=== PATIENT | male | born 1965 | race Caucasian/White ===

== ENCOUNTER 2016-12-13 20:24 | Emergency (ER) | payer OTHER ==
--- NOTE | 2016-12-13 22:05 | DIAGNOSTIC IMAGING REPORT ---
PROCEDURE: CT HEAD WITHOUT CONTRAST INDICATION: HEADACHE TECHNIQUE: Axial CT images were acquired through the head. Coronal and sagittal reformations were created. COMPARISON: 11/16/2015 and 05/13/2016 FINDINGS: There is a peripherally hyperdense, irregular mass in the right posterior parieto-occipital region. It measures approximately 4.7 x 4.1 x 3.8 cm. There is extensive vasogenic edema involving the right posterior hemisphere resulting in 13 mm of right to left midline shift (subfalcine herniation), and compression of the right lateral ventricle with obliteration of the posterior horn. Mild dilatation of the left lateral ventricle. Edema extends caudal to affect the temporal lobe and causes descending transtentorial herniation on the right and effacement of suprasellar and ambient cisterns. There is descent of the mid brain. There is transtentorial herniation of the posterior aspect of the temporal lobe into the posterior fossa, seen best on coronal images. Slight right cerebellar tonsillar herniation into the foramen magnum. No drainable extra-axial fluid collection. Extracranial soft tissues including orbits are normal. Osseous structures are intact. Sinuses are normally aerated. IMPRESSION: 1. Right parieto-occipital peripherally hyperdense mass causing extensive vasogenic edema in the right posterior hemisphere. This results in significant mass effect and potentially lethal herniation as described. 2. Findings discussed with Dr. Lang at [address] scans at this facility use dose modulation, iterative reconstruction, and/or weight-based dosing when appropriate to reduce radiation dose to as low as reasonably achievable.
--- NOTE | 2016-12-13 22:12 | DIAGNOSTIC IMAGING REPORT ---
PROCEDURE: XR CHEST 2 VIEW INDICATION: COUGH TECHNIQUE: Two views. COMPARISON: 05/13/2016 FINDINGS: The cardiomediastinal contour is stable. No central venous congestion. Mildly hyperinflated lungs. 2.4 cm lobulated mass in the right lower lobe. An adjacent 8 mm nodule. Both have slightly increased compared to the prior study. No other masses. No infiltrates or effusions. Intact osseous structures. IMPRESSION: 1. Two right lower lung nodules, both mildly increased in size since the prior study. 2. Mildly hyperinflated lungs
--- NOTE | 2016-12-13 22:58 | ED ORDER SUMMARY ---
..... Patient: GUSTAVO GONZALEZ OrderSheet [facility] VisitID: [id number] [place] [address] 51y, M Registration Date/Time: 12/13/2016 ORDER SHEET Weight: 74.8 kg (stated) Allergies: No Known Drug Allergy GENERAL ORDERS: CBC w Diff Urgent (20:39 12/13/2016 [facility] DO) (Ack 20:41 [employer] [facility] Pump Installer) (20:42 MWinterer R.N.) CMP Urgent (20:39 12/13/2016 [facility] DO) (Ack 20:41 [employer] [facility] Pump Installer) (20:42 MWinterer R.N.) Chest 2V (reported history of lung cancer) Urgent (20:53 12/13/2016 [facility] DO) (Ack 20:55 [employer] [facility] Pump Installer) (21:10 MWinterer R.N.) CT Head wo Cont (reported history of "brain cancer") Urgent (20:54 12/13/2016 [facility] DO) (Ack 20:55 [employer] [facility] Pump Installer) (21:10 MWinterer R.N.) - (mannitol (20%) Loading dose 0.5 g/kg bolus) (22:13 12/13/2016 Lavonne Trevino) (Ack 22:17 MWinterer R.N.) (22:53 MWinterer R.N.) - (serum osmolality) (22:15 12/13/2016 Lavonne Trevino) (Cancelled: Other22:26 [employer] [facility] Pump Installer) PT with INR Urgent (22:16 12/13/2016 Lavonne Trevino) (22:29 [employer] [facility] Pump Installer) PTT Urgent (22:16 12/13/2016 Lavonne Trevino) (22:29 [employer] ER Pump Installer) MEDICATION ORDERS: IV FLUIDS: IV NS : initial bolus 1000 mL (1000 mL/hr), then 1000 mL/hr for X2 (NOW) (20:39 12/13/2016 [facility] DO) (Ack 20:42 MWinterer R.N.) (21:05 MWinterer R.N.) Dilaudid IV 0.5 mg (HIGH ALERT MEDICATION, NOW) (20:53 12/13/2016 [facility]) (Ack 21:04 MWinterer R.N.) (21:36 MWinterer R.N.) Zofran IV 4 mg (NOW) (20:53 12/13/2016 [facility]) (Ack 21:04 MWinterer R.N.) (21:36 MWinterer R.N.) Decadron IV 10 mg (NOW) (22:16 12/13/2016 Lavonne Trevino) (Ack 22:17 MWinterer R.N.) (22:39 MWinterer R.N.) Mannitol IV 0.5 gm/kg (NOW) (22:59 12/13/2016 MWinterer R.N. written order Lavonne Trevino) (23:00 MWinterer R.N.) ORDER SHEET NOTES: [Electronically signed by Karley Padilla (01:35 12/14/2016)] [Electronically signed by Jose Lang Dr. (10:09 12/14/2016)] [Electronically locked/signed by Karley Padilla (01:35 12/14/2016)]
--- NOTE | 2016-12-13 22:58 | ED CLINICAL REPORT ---
Clinical Report - Physicians/Mid Levels [address] [place] [address] 12/13/2016 20:24 Patient: GUSTAVO GONZALEZ Time Seen: 20:38. Arrived- By private vehicle. Historian- patient. HISTORY OF PRESENT ILLNESS Is still present and worsening. Chief Complaint: HEADACHE. This started about 1 month ago. It was gradual in onset and has been waxing/waning but is not gone now. Onset during rest. It is described as "pain". No neck pain. Not located in the facial region. At its maximum, severity described as severe. When seen in the E.D., severity described as severe. Modifying factors: worsened by moving head; relieved by rest. The patient has had nausea and vomiting. No weakness. Similar symptoms previously: None. Recent medical care: Not recently seen/assessed. REVIEW OF SYSTEMS No fever, chest pain or difficulty breathing. All systems otherwise negative, except as recorded above. PAST HISTORY See nurses notes. PROBLEMS: Malignant neoplasm of brain. Lung Cancer. Head Injury. SOCIAL HISTORY Smoker- current status unknown. History of drug use meth > 20 y ago: marijuana. No alcohol use. No recent travel. Is a local resident. ADDITIONAL NOTES The nursing notes have been reviewed. PHYSICAL EXAM Vital Signs: 12/13/2016 20:31 BP: 146/78. HR: 69. RR: 12. O2 saturation: 99%. Temp: 97.9 F. Pain level now: 8/10. Blood pressure normal. Oxygen saturation normal. Appearance: Alert. Patient in mild distress. (non-toxic. pleasant. cooperative. polite.). Eyes: Pupils equal, round and reactive to light. Eyes normal inspection. ENT: Ears normal. Nose normal. Pharynx normal. Neck: Normal inspection. Neck supple. No meningeal signs. CVS: Normal heart rate and rhythm. Heart sounds normal. Pulses normal. Respiratory: No respiratory distress. Breath sounds normal. Abdomen: Soft and nontender. No organomegaly. Skin: Skin warm and dry. Normal skin color. No rash. Normal skin turgor. Extremities: Extremities exhibit normal ROM. No lower extremity edema. Neuro: Oriented X 3. Alert. Mood/affect normal. Speech normal. Cranial nerves normal (as tested). No cerebellar findings. No motor deficit. No sensory deficit. LABS, X-RAYS, AND EKG Chest X-ray: (PROCEDURE: XR CHEST 2 VIEW INDICATION: COUGH TECHNIQUE: Two views. COMPARISON: 05/13/2016 FINDINGS: The cardiomediastinal contour is stable. No central venous congestion. Mildly hyperinflated lungs. 2.4 cm lobulated mass in the right lower lobe. An adjacent 8 mm nodule. Both have slightly increased compared to the prior study. No other masses. No infiltrates or effusions. Intact osseous structures. IMPRESSION: 1. Two right lower lung nodules, both mildly increased in size since the prior study. 2. Mildly hyperinflated lungs). CT Head: (PROCEDURE: CT HEAD WITHOUT CONTRAST INDICATION: HEADACHE TECHNIQUE: Axial CT images were acquired through the head. Coronal and sagittal reformations were created. COMPARISON: 11/16/2015 and 05/13/2016 FINDINGS: There is a peripherally hyperdense, irregular mass in the right posterior parieto-occipital region. It measures approximately 4.7 x 4.1 x 3.8 cm. There is extensive vasogenic edema involving the right posterior hemisphere resulting in 13 mm of right to left midline shift (subfalcine herniation), and compression of the right lateral ventricle with obliteration of the posterior horn. Mild dilatation of the left lateral ventricle. Edema extends caudal to affect the temporal lobe and causes descending transtentorial herniation on the right and effacement of suprasellar and ambient cisterns. There is descent of the mid brain. There is transtentorial herniation of the posterior aspect of the temporal lobe into the posterior fossa, seen best on coronal images. Slight right cerebellar tonsillar herniation into the foramen magnum. No drainable extra-axial fluid collection. Extracranial soft tissues including orbits are normal. Osseous structures are intact. Sinuses are normally aerated. IMPRESSION: 1. Right parieto-occipital peripherally hyperdense mass causing extensive vasogenic edema in the right posterior hemisphere. This results in significant mass effect and potentially lethal herniation as described.). The study was independently viewed by me and interpreted by the radiologist. The study was discussed with the radiologist (via phone and pacs). Laboratory Tests: CBC w Diff: (ASIA: 12/13/2016 20:40) ( MsgRcvd 12/13/2016 20:53) Final results Test Result Flag Units (Reference) WHITE BLOOD COUNT 12.2 H K/uL (4.5-11.5) RED BLOOD COUNT 4.97 M/uL (4.50-5.90) HEMOGLOBIN 15.3 gm/dL (13.5-17.5) HEMATOCRIT 45.2 % (41.0-53.0) MEAN CELL VOLUME 91 fL (80-100) MEAN CORPUSCULAR HGB 31 pg (26-34) MEAN CORPUSCULAR HGB CONC 34 g/dL (31-37) RED CELL DISTRIBUTION WIDTH 14.2 % (11.6-14.8) PLATELET COUNT 400 K/uL (150-400) NEUTROPHIL % 84.3 H % (50-75) LYMPH % 9.3 L % (25-40) MONO % 5.5 % (3-14) EOSINOPHIL % 0.6 % (0-4) BASOPHIL % 0.3 % (0-2) CMP: (ASIA: 12/13/2016 20:40) ( MsgRcvd 12/13/2016 21:13) Final results Test Result Flag Units (Reference) GLUCOSE 96 mg/dL (70-110) BUN 9 mg/dL (7-18) CREATININE 0.7 mg/dL (0.6-1.3) Estimated GFR >60 mL/min Estimated GFR- >60 mL/min Note: Persistent reduction over 3 months in eGFR<60 mL/min/1.73 m2 defines CKD. Patients with eGFR values>=60 mL/min/1.73 m2 may also have CKD if evidence ofpersistent proteinuria. Additional information may be foundat [email or web address].org. SODIUM 140 mmol/L (136-145) POTASSIUM 4.0 mmol/L (3.5-5.1) CHLORIDE 102 mmol/L (98-107) CARBON DIOXIDE 22 mmol/L (21-32) CALCIUM 9.5 mg/dL (8.5-10.1) TOTAL PROTEIN 7.9 g/dL (6.4-8.2) ALBUMIN 4.3 g/dL (3.3-5.0) BILIRUBIN, TOTAL 0.6 mg/dL (0.0-1.0) ALKALINE PHOSPHATASE 60 U/L (46-116) AST (SGOT) 19 U/L (15-37) ALT (SGPT) 18 U/L (12-78) . PROGRESS AND PROCEDURES Course of Care: the patient is a 51-year-old male presenting for evaluation of headache. The patient has a complex past medical history including lung cancer with metastasis to the brain. Patient had a unfortunate misunderstanding with the doctors over at [facility]. Patient is currentlystating that he does not want to be transferred to [facility] if anything abnormal should arise. Patient was initially evaluated by the previous provider. I have taken over care at the change of shift. Sign out was to follow up on patient's laboratory studies and imaging results. Patient was noted to have a otherwise normal neurological examination. The patient's workup was remarkable for the findings above. Head discussion with radiology in regards to the patient's findings. Because of the seriousness of the patient's condition, immediately placed a consult to neurosurgery. Unfortunately there were no beds available at [place] [facility]. We're able to contact [facility]. Again patient was declining transfer to [facility]. They have long discussion with the patient in regards to different types of options that he had including but not limited to comfort care only or transfer to another facility for higher level of care. Patient was eventually agreeable to having higher level of care. Warned against going home and establishing care as an outpatient. Patient understands the severity of the case. We will to speak to [facility]. We able to speak to the on-call neurosurgeon. I described the patient's condition to the neurosurgeon there at [facility]. Patient will be accepted to the ICU there. Patient will be transferred via ALS. Prior to speaking with neurosurgery, mannitol was started as well as 10 mg of IV Decadron. Patient will be monitored closely. No further recs from neurosurgery at this time. Informed written consent was obtained for the transfer. Neurological exam remains unchanged at this time. Family patient updated on the status of the transport. Patient stable for transport. Repeat exam prior to transport improved. Pain significantly better. Patient with no focal deficits. Critical care performed (65 minutes). Time is exclusive of separately billable procedures. Time includes: direct patient care, patient reassessment, coordination of patient care, review of patient's medical records, medical consultation, family consultation regarding treatment decisions and documentation of patient care. Consult obtained. neurosurger. Disposition: Transferred to [facility] [place]. CLINICAL IMPRESSION cerebral edema, acute severe with midline shift intracranial mass acute headache. (Electronically signed by Jose Lang Dr. 12/14/2016 10:09)
--- NOTE | 2016-12-13 22:58 | ED NURSING NOTES ---
Clinical Report - Nurses [facility] [place] [address] 12/13/2016 20:24 Patient: GUSTAVO GONZALEZ TRIAGE Acuity: LEVEL 3. Chief Complaint: HEADACHE. Alert. No acute distress. SEPSIS SCREEN: Sepsis Screen. Negative (no infection suspected/documented). --20:36 Laura Roberts R.N. 20:31 12/13/16. BP: 146/78. HR: 69. RR: 12. O2 saturation: 99% on room air. Temp: 97.9 F (oral). Pain level now: 02/12. --20:36 Laura Roberts R.N. Weight: 74.8 kg stated. Height/Length: 69 inches Per Patient. BMI: 24.4. --20:35 Laura Roberts R.N. Medications None. --20:33 Laura Roberts R.N. Medication/allergy information source: the patient. --20:36 Laura Roberts R.N. Allergies No Known Drug Allergy. --20:33 Laura Roberts R.N. History Arrived by private vehicle. Historian: patient. Accompanied by father. Primary physician (none). This started 1 months ago. ( Pt reports he was diagnosed with brain cancer in May. He states he now has "pretty much constant" head pain and nausea.). He has had nausea and vomiting. SOCIAL HX: Former smoker (pt states he quit smoking "a few days ago"). History of heavy drug use: marijuana. No alcohol use. FALL RISK ASSESSMENT: Fall risk assessment completed. No fall risk identified. NUTRITIONAL RISK ASSESSMENT: The nutritional risk assessment revealed no deficiencies. FUNCTIONAL ASSESSMENT: Functional assessment: no impairments noted. LEARNING NEEDS ASSESSMENT: The learning needs assessment revealed no barriers. SKIN INTEGRITY ASSESSMENT: Skin integrity risk assessment completed. No skin integrity risk identified. --20:36 Laura Roberts R.N. PROBLEMS: Malignant neoplasm of brain. Lung Cancer. Head Injury. --20:33 Laura Roberts R.N. Assessment GENERAL / NEURO / PSYCH: Alert. Oriented X 4. Appears in no acute distress. Matty Coma Scale: 15- eyes open spontaneously (4); best verbal response- oriented x 4 (5); best motor response- obeys commands (6). Patient appears calm and cooperative. RESPIRATORY: Respirations not labored. CVS: Capillary refill less than 2 seconds. GI / : Abdomen soft and nontender. SKIN: Mucous membranes are pink. Skin is warm and dry. --20:36 Laura Roberts R.N. Interventions ID band on patient. To treatment room. --20:36 Laura Roberts R.N. PHYSICAL ASSESSMENT 20:36 12/13/16. To room via wheelchair. GENERAL / NEURO / PSYCH: Alert. Oriented X 4. Appears in no acute distress. Speech within normal limits. HEENT: No facial asymmetry noted. Pupils equal, round and reactive to light. RESPIRATORY: Respirations not labored. CVS: Capillary refill less than 2 seconds. GI / : Abdomen soft and nontender. SKIN: Skin is warm and dry. --20:36 Laura Roberts R.N. NURSING PROGRESS NOTES 20:37 12/13/16. Patient gowned. Two patient identifiers checked. Call light placed in reach. Side rails up x 1. Bed placed in lowest position. Brakes of bed on. Patient ready for evaluation- chart flagged. --20:37 Laura Roberts R.N. 20:49 12/13/2016 Site #1 started via IV in the left forearm with an 20g angiocath, with aseptic technique and good blood return; one attempt. Blood drawn: rainbow set. Labeled in the presence of the patient and sent to the lab. Saline lock flushed with 10 mL saline. --21:04 Laura Roberts R.N. 20:55 12/13/2016 Started bag #1 1000 mL IV Fluids IV NS (Saline); at 999 mL/hr over 1 hour(s) via site #1 via IV pump. Allergies verified and confirmed 5 rights. IV patency established. IV site checked: no pain, redness, or swelling. IV flushed thoroughly pre- and post-medication administration. --21:05 Laura Roberts R.N. 21:26 12/13/2016 Dilaudid (HYDROmorphone HCl PF) IVP 0.5 mg given over 1 minute(s) via site #1. Allergies verified, confirmed 5 rights and sedative warning given to the patient. IV patency established. IV site checked: no pain, redness, or swelling. IV flushed thoroughly pre- and post-medication administration. IVP given by RN. --21:36 Laura Roberts R.N. 21:36 12/13/2016 Zofran (Ondansetron HCl) IVP 4 mg given over 1 minute(s) via site #1. Allergies verified and confirmed 5 rights. IV patency established. IV site checked: no pain, redness, or swelling. IV flushed thoroughly pre- and post-medication administration. IVP given by RN. --21:36 Laura Roberts R.N. 22:39 12/13/2016 Decadron IVP 10 mg given over 5 minute(s) via site #1. Allergies verified and confirmed 5 rights. IV patency established. IV site checked: no pain, redness, or swelling. IV flushed thoroughly pre- and post-medication administration. IVP given by RN. --22:39 Laura Roberts R.N. 22:55 12/13/2016 Started 37.4 gm of Mannitol IVPB in bag #1 500 mL; at 400 mL/hr over 30 minute(s) via site #1 via IV pump. Allergies verified and confirmed 5 rights. IV patency established. IV site checked: no pain, redness, or swelling. IV flushed thoroughly pre- and post-medication administration. --23:00 Laura Roberts R.N. 22:57 12/13/16. ( mannitol 20% loading dose of 0.5 g/kg bolus started. Bolus total 37.4 g. IV started at 400 mL/hour.). --22:57 Laura Roberts R.N. 23:12/13/16. BP: 132/81. HR: 59. RR: 16. O2 saturation: 98% on room air. Pain level now: 08/15. --23:09 Laura Roberts R.N. 23:13 12/13/16. Care transferred and report given (Karley, RN). --23:13 Laura Roberts R.N. Overall patient status is the same- he states feels better. --00:57 Karley Padilla 00:56 12/14/16. BP: 123/71. HR: 60. RR: 18. O2 saturation: 98%. Pain level now 08/15. --00:57 Karley Padilla. DISPOSITION / DISCHARGE Condition at departure: improved and critical. Transferred to [facility]. Summary of care provided to transport team and transfer facility. Report was given to a nurse via a phone call. All questions were answered. Report was acknowledged and care was transferred. (Lima PARKS). --01:13 Karley Padilla Departure time: 0130. --01:35 Karley Padilla. Locked/Released at 12/14/2016 1:35 by Karley Padilla,
--- NOTE | 2016-12-13 22:58 | ED ORDER SUMMARY ---
..... Patient: GUSTAVO GONZALEZ OrderSheet [facility] VisitID: [id number] [place] [address] 51y, M Registration Date/Time: 12/13/2016 ORDER SHEET Weight: 74.8 kg (stated) Allergies: No Known Drug Allergy GENERAL ORDERS: CBC w Diff Urgent (20:39 12/13/2016 [facility] DO) (Ack 20:41 thereNow ER Fish Egg Packer) (20:42 MWinterer R.N.) CMP Urgent (20:39 12/13/2016 [facility] DO) (Ack 20:41 The Author [employer]erty ER Fish Egg Packer) (20:42 MWinterer R.N.) Chest 2V (reported history of lung cancer) Urgent (20:53 12/13/2016 [facility] DO) (Ack 20:55 [facility] [employer] ER Fish Egg Packer) (21:10 MWinterer R.N.) CT Head wo Cont (reported history of "brain cancer") Urgent (20:54 12/13/2016 [facility] DO) (Ack 20:55 [facility] [employer] Fish Egg Packer) (21:10 MWinterer R.N.) - (mannitol (20%) Loading dose 0.5 g/kg bolus) (22:13 12/13/2016 Lavonne Trevino) (Ack 22:17 MWinterer R.N.) (22:53 MWinterer R.N.) - (serum osmolality) (22:15 12/13/2016 Lavonne Trevino) (Cancelled: Other22:26 CHagerty ER Fish Egg Packer) PT with INR Urgent (22:16 12/13/2016 Lavonne Trevino) (22:29 [facility] Fish Egg Packer) PTT Urgent (22:16 12/13/2016 Lavonne Trevino) (22:29 [facility] Fish Egg Packer) MEDICATION ORDERS: IV FLUIDS: IV NS : initial bolus 1000 mL (1000 mL/hr), then 1000 mL/hr for X2 (NOW) (20:39 12/13/2016 [facility] DO) (Ack 20:42 MWinterer R.N.) (21:05 MWinterer R.N.) Dilaudid IV 0.5 mg (HIGH ALERT MEDICATION, NOW) (20:53 12/13/2016 [facility]) (Ack 21:04 MWinterer R.N.) (21:36 MWinterer R.N.) Zofran IV 4 mg (NOW) (20:53 12/13/2016 [facility]) (Ack 21:04 MWinterer R.N.) (21:36 MWinterer R.N.) Decadron IV 10 mg (NOW) (22:16 12/13/2016 [facility] Trevino) (Ack 22:17 MWinterer R.N.) (22:39 MWinterer R.N.) Mannitol IV 0.5 gm/kg (NOW) (22:59 12/13/2016 MWinterer R.N. written order Lavonne Trevino) (23:00 MWinterer R.N.) ORDER SHEET NOTES: [Electronically signed by Karley Padilla (01:35 12/14/2016)] [Electronically signed by Jose Lang Dr. (10:09 12/14/2016)] [Electronically locked/signed by Karley Padilla (01:35 12/14/2016)]
--- NOTE | 2016-12-14 10:09 | ED MED RECONCILIATION SUMMARY ---
Patient: GUSTAVO GONZALEZ Medication Reconciliation Report [facility] VisitID: [id number] [address] [place] [address] 51y, M Registration Date/Time: 12/13/2016 Weight: 74.8 kg Height/Length: 69 in. BMI: 24.4 ALLERGIES: No Known Drug Allergy The patient's Home Medications are listed below: NONE. The source(s) of the original Home Medication information: patient The following Medications were given to the patient in the Emergency Department: IV NS IV Fluids bolus 0, then 999 mL/hr, administered: 12/13/2016 8:55:00 PM Dilaudid [IVP] IVP 0.5 mg, administered: 12/13/2016 9:26:00 PM Zofran [IVP] IVP 4 mg, administered: 12/13/2016 9:36:00 PM Decadron [IVP] IVP 10 mg, administered: 12/13/2016 10:39:00 PM Mannitol [IVPB] IVPB bolus 0, then 37.4 gm 400 mL/hr, administered: 12/13/2016 10:55:00 PM The following Medications were prescribed to the patient: None.
--- NOTE | 2016-12-14 10:09 | ED MAR SUMMARY ---
..... Medication Administration Record [facility] [address] [place] [address] Patient: GUSTAVO GONZALEZ Visit ID: [id number] 51y, M Weight: 74.8 kg Height/Length: 69 in BMI: 24.4 ALLERGIES: No Known Drug Allergy Start 20:55 12/13/2016 Laura Roberts R.N. Medication Administered: IV NS (SALINE), Dose: IV Fluids over 1 hour(s), Rate: 999 mL/hr, Dispensed: 1000 mL bag, Site: #1 left forearm. Medication Ordered: IV NS : initial bolus 1000 mL (1000 mL/hr), then 1000 mL/hr for X2 (NOW). Given 21:26 12/13/2016 Laura Roberts R.N. Medication Administered: DILAUDID [IVP] (HYDROMORPHONE HCL PF), Dose: 0.5 mg IVP over 1 minute(s), Site: #1 left forearm. Medication Ordered: Dilaudid IV 0.5 mg (HIGH ALERT MEDICATION, NOW). Given 21:36 12/13/2016 Laura Roberts R.N. Medication Administered: ZOFRAN [IVP] (ONDANSETRON HCL), Dose: 4 mg IVP over 1 minute(s), Site: #1 left forearm. Medication Ordered: Zofran IV 4 mg (NOW). Given 22:39 12/13/2016 Laura Roberts R.N. Medication Administered: DECADRON [IVP], Dose: 10 mg IVP over 5 minute(s), Site: #1 left forearm. Medication Ordered: Decadron IV 10 mg (NOW). Start 22:55 12/13/2016 Laura Roberts R.N. Medication Administered: MANNITOL [IVPB], Dose: 37.4 gm IVPB over 30 minute(s), Rate: 400 mL/hr, Dispensed: 500 mL bag, Site: #1 left forearm. Medication Ordered: Mannitol IV 0.5 gm/kg (NOW).
--- NOTE | 2016-12-14 10:09 | ED MED RECONCILIATION SUMMARY ---
Patient: GUSTAVO GONZALEZ Medication Reconciliation Report [facility] VisitID: [id number] [address] [place] [address] 51y, M Registration Date/Time: 12/13/2016 Weight: 74.8 kg Height/Length: 69 in. BMI: 24.4 ALLERGIES: No Known Drug Allergy The patient's Home Medications are listed below: NONE. The source(s) of the original Home Medication information: patient The following Medications were given to the patient in the Emergency Department: IV NS IV Fluids bolus 0, then 999 mL/hr, administered: 12/13/2016 8:55:00 PM Dilaudid [IVP] IVP 0.5 mg, administered: 12/13/2016 9:26:00 PM Zofran [IVP] IVP 4 mg, administered: 12/13/2016 9:36:00 PM Decadron [IVP] IVP 10 mg, administered: 12/13/2016 10:39:00 PM Mannitol [IVPB] IVPB bolus 0, then 37.4 gm 400 mL/hr, administered: 12/13/2016 10:55:00 PM The following Medications were prescribed to the patient: None.
--- NOTE | 2016-12-14 10:09 | ED DISCHARGE INSTRUCTIONS ---
Patient: GUSTAVO GONZALEZ General Instructions [facility] VisitID: [id number] [address] [place] [address] 51y, M Registration Date/Time: 12/13/2016 cerebral edema, acute severe with midline shift intracranial mass acute headache. (Electronically signed by Jose Lang Dr. 12/14/2016 10:09)
--- NOTE | 2016-12-14 10:09 | ED MAR SUMMARY ---
..... Medication Administration Record [facility] [address] [place] [address] Patient: GUSTAVO GONZALEZ Visit ID: [id number] 51y, M Weight: 74.8 kg Height/Length: 69 in BMI: 24.4 ALLERGIES: No Known Drug Allergy Start 20:55 12/13/2016 Laura Roberts R.N. Medication Administered: IV NS (SALINE), Dose: IV Fluids over 1 hour(s), Rate: 999 mL/hr, Dispensed: 1000 mL bag, Site: #1 left forearm. Medication Ordered: IV NS : initial bolus 1000 mL (1000 mL/hr), then 1000 mL/hr for X2 (NOW). Given 21:26 12/13/2016 Laura Roberts R.N. Medication Administered: DILAUDID [IVP] (HYDROMORPHONE HCL PF), Dose: 0.5 mg IVP over 1 minute(s), Site: #1 left forearm. Medication Ordered: Dilaudid IV 0.5 mg (HIGH ALERT MEDICATION, NOW). Given 21:36 12/13/2016 Laura Roberts R.N. Medication Administered: ZOFRAN [IVP] (ONDANSETRON HCL), Dose: 4 mg IVP over 1 minute(s), Site: #1 left forearm. Medication Ordered: Zofran IV 4 mg (NOW). Given 22:39 12/13/2016 Laura Roberts R.N. Medication Administered: DECADRON [IVP], Dose: 10 mg IVP over 5 minute(s), Site: #1 left forearm. Medication Ordered: Decadron IV 10 mg (NOW). Start 22:55 12/13/2016 Laura Roberts R.N. Medication Administered: MANNITOL [IVPB], Dose: 37.4 gm IVPB over 30 minute(s), Rate: 400 mL/hr, Dispensed: 500 mL bag, Site: #1 left forearm. Medication Ordered: Mannitol IV 0.5 gm/kg (NOW).
--- NOTE | 2016-12-14 10:09 | ED DISCHARGE INSTRUCTIONS ---
Patient: GUSTAVO GONZALEZ General Instructions [facility] VisitID: [id number] [address] [place] [address] 51y, M Registration Date/Time: 12/13/2016 cerebral edema, acute severe with midline shift intracranial mass acute headache. (Electronically signed by Jose Lang Dr. 12/14/2016 10:09)
== END 2016-12-14 01:35 | disposition short-term general hospital (02) ==
LOC: ED SRH 20:24
DX: G93.6 Cerebral edema (principal); C79.31 Secondary malignant neoplasm of brain; R51 Headache; C34.90 Malignant neoplasm of unspecified part of unspecified bronchus or lung
CPT/HCPCS: 90100; 94001; 94060; 95059